=== PATIENT | female | born 1935 | race Caucasian/White ===

== ENCOUNTER 2022-03-05 15:14 | Outpatient (CLI) | payer MEDICARE, SELFPAY ==
--- NOTE | ~2022-03-05 | XR_ITS ---
XR sacrum coccyx min 2V DATE: 03/05/2022 15:42 INDICATION: Sensory urgent incontinence TECHNIQUE: AP and lateral views COMPARISON: None FINDINGS: There is a battery pack in the left gluteal area with lead extending through the right S3 n eural foramen posteroanteriorly. No sacral fracture or bone destruction is detected. Degenerative disc disease at L3-4, L4-5 and particularly severely at L5-S1. 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 Reviewed, dictated and finalized at location A. I[facility]
== END 2022-03-05 15:15 | disposition home or self-care (01) ==
LOC: ANHIMG 15:20
PROVIDERS: Visit Provider Urology
DX: N39.41 Urge incontinence (principal); M51.36 Other intervertebral disc degeneration, lumbar region; M16.0 Bilateral primary osteoarthritis of hip
CPT/HCPCS: 72220